=== PATIENT | male | born 1965 | race Caucasian/White ===

== ENCOUNTER 2022-05-20 14:42 | Emergency (ER) | payer OTHER ==
[~2022-05-20] VITALS: Ht 182.9 cm; Wt 147.9 kg
[~2022-05-20 14:42] MED LIST: APIX5TAB PO; CARV6.252 PO; FLONAS NS; LISI5TAB24 PO
[2022-05-20 14:58] VITALS: BP 109/47
--- NOTE | 2022-05-20 15:15 | NUR ---
PT AMB WITH STEADY GAIT TO BED 5
--- NOTE | 2022-05-20 15:49 | NUR ---
56YO MALE PT C/O EDEMA X2 DAYS. PT STATES CONSTANT MILD SWELLING BUT " IS WORSE TODAY" . PT PRESENTS WITH BILATERAL +1 PITTING EDEMA BELOW KNEES. PT C/O PAIN WHEN BEARING WEIGHT FOR LONG PERIODS OF TIME, DENIES AT THIS TIME. CAP REFILL <3 BILATERALLY THROUGHOUT LEGS. PT HAS HX OF AFIB AND STATES BEIING COMPLIANT W/ MEDS . DENIES N/V/D OR CHEST PAIN. PT PT ON FRENCH POLISHER, BED AT LOWEST POSITION, BED RAIL UPX2. HX: AFIB ALLERGIES: PENICILLIN
--- NOTE | 2022-05-20 15:53 | NUR ---
PT AMBULATES WITH STEADY GAIT TO RESTROOM.
--- NOTE | 2022-05-20 16:00 | NUR ---
XRAY AT BEDSIDE
[2022-05-20 16:32] LABS: BASOPHILS % (AUTO) 0.7 % (0.0-2.0); EOSINOPHILS # (AUTO) 0.2 K/uL (0-0.4); EOSINOPHILS % (AUTO) 4.2 % (0.0-4.0); HEMATOCRIT 44.8 % (36-52); HEMOGLOBIN 14.7 g/dL (12.0-18.0); LYMPHOCYTES # (AUTO) 1.4 K/uL (2.0-11.5); LYMPHOCYTES % (AUTO) 28.3 % (20.5-51.1); MEAN CORPUSCULAR HEMOGLOBIN 31 pg (27-31); MEAN CORPUSCULAR HGB CONC 33 g/dL (33-37); MEAN CORPUSCULAR VOLUME 94.2 fL (80-94); MONOCYTES # (AUTO) 0.7 K/uL (0.8-1.0); MONOCYTES % (AUTO) 14.3 % (1.7-9.3); NEUTROPHILS # (AUTO) 2.6 K/uL (1.8-7.7); NEUTROPHILS % (AUTO) 52.5 % (42.2-75.2); PLATELET COUNT (AUTO) 198 K/uL (140-450); RED BLOOD CELL COUNT(AUTO) 4.76 MIL/uL (4.20-6.10); RED CELL DISTRIBUTION WIDTH 13.8 % (11.6-13.7)
[2022-05-20 16:50] LABS: ALBUMIN 3.4 g/dL (3.4-5.0); ANION GAP 8.4 (8-16); CREATININE 1.5 mg/dL (0.6-1.3); POTASSIUM 4.4 mmol/L (3.5-5.1); TOTAL BILIRUBIN 0.4 mg/dL (0.0-1.0)
[2022-05-20] MEDS ORDERED: FURO-572 PO (17:51)
[2022-05-20 18:08] VITALS: BP 118/81
--- NOTE | 2022-05-20 18:08 | NUR ---
Patient discharged with v/s stable. Written and verbal after care instructions FOR EDEMA given and explained. Patient alert, oriented and verbalized understanding of instructions. Ambulatory with steady gait. All questions addressed prior to discharge. ID band removed. Patient advised to follow up with PMD. Rx of LASIX given. Opportunity to ask questions provided and answered.
== END 2022-05-20 18:08 | disposition home or self-care (01) ==
LOC: MED 14:42
DX: R60.9 Edema, unspecified (principal); N28.9 Disorder of kidney and ureter, unspecified; I48.91 Unspecified atrial fibrillation; I50.9 Heart failure, unspecified
CPT/HCPCS: 36415; 71045; 80053; 83880; 84484; 85025; 93005; 99285; Q0092

== ENCOUNTER 2022-05-24 23:30 | Emergency (ER) | payer OTHER ==
[~2022-05-24] VITALS: Ht 182.9 cm; Wt 147.0 kg
[~2022-05-24 23:30] MED LIST changes: +FURO-572 PO
[2022-05-24 23:40] VITALS: BP 116/71
--- NOTE | 2022-05-25 00:44 | NUR ---
Dr. Vincent examining patient.
[2022-05-25] MEDS ORDERED: DAPA10TA PO (00:47)
[2022-05-25] MEDS ORDERED: SACU1TAB9 PO (00:47)
[2022-05-25 00:56] VITALS: BP 116/71
--- NOTE | 2022-05-25 00:56 | NUR ---
Patient discharged with v/s stable. Written and verbal after care instructions given and explained by Dr. Vincent. Patient verbalized understanding. Ambulatory with steady gait. All questions addressed prior to discharge. Advised to follow up with PMD.
== END 2022-05-25 00:56 | disposition home or self-care (01) ==
LOC: MED 23:30
DX: R07.89 Other chest pain (principal); I48.91 Unspecified atrial fibrillation; I10 Essential (primary) hypertension; Z90.49 Acquired absence of other specified parts of digestive tract
CPT/HCPCS: 93005; 99283

== ENCOUNTER 2022-07-01 23:20 | Emergency (ER) | payer OTHER ==
[~2022-07-01] VITALS: Ht 182.9 cm; Wt 144.2 kg
[~2022-07-01 23:20] MED LIST changes: +DAPA10TA PO; +SACU1TAB9 PO
[2022-07-01 23:26] VITALS: BP_SYST 138; BP_SYST 95; BP_DIAS 47; BP_DIAS 79
--- NOTE | 2022-07-01 23:38 | NUR ---
Patient ambulated to bed 1.
--- NOTE | 2022-07-01 23:45 | NUR ---
ER physician at bedside assessing patient.
[2022-07-02 01:51] LABS: BASOPHILS # (AUTO) 0.1 K/uL (0.00-0.22); BASOPHILS % (AUTO) 1.3 % (0.0-2.0); EOSINOPHILS # (AUTO) 0.4 K/uL (0-0.4); EOSINOPHILS % (AUTO) 6.2 % (0.0-4.0); HEMATOCRIT 46.9 % (36-52); HEMOGLOBIN 15.5 g/dL (12.0-18.0); LYMPHOCYTES # (AUTO) 2.1 K/uL (2.0-11.5); LYMPHOCYTES % (AUTO) 35.4 % (20.5-51.1); MEAN CORPUSCULAR HEMOGLOBIN 32 pg (27-31); MEAN CORPUSCULAR HGB CONC 33 g/dL (33-37); MEAN CORPUSCULAR VOLUME 95.5 fL (80-94); MONOCYTES # (AUTO) 0.8 K/uL (0.8-1.0); MONOCYTES % (AUTO) 14.2 % (1.7-9.3); NEUTROPHILS # (AUTO) 2.5 K/uL (1.8-7.7); NEUTROPHILS % (AUTO) 42.9 % (42.2-75.2); PLATELET COUNT (AUTO) 185 K/uL (140-450); RED BLOOD CELL COUNT(AUTO) 4.91 MIL/uL (4.20-6.10); RED CELL DISTRIBUTION WIDTH 15.3 % (11.6-13.7); WHITE BLOOD COUNT (AUTO) 5.9 K/uL (4.8-10.8)
--- NOTE | 2022-07-02 02:00 | NUR ---
Patient resting comfortably in bed, chest rise and fall symmetrical, no c/o of pain or s/s of discomfort.
[2022-07-02 02:05] LABS: ALBUMIN 3.2 g/dL (3.4-5.0); ANION GAP 8.2 (8-16); CARBON DIOXIDE 34.7 mmol/L (21-32); CREATININE 1.7 mg/dL (0.6-1.3); POTASSIUM 3.9 mmol/L (3.5-5.1); TOTAL BILIRUBIN 0.7 mg/dL (0.0-1.0)
--- NOTE | 2022-07-02 03:30 | NUR ---
Patient resting comfortably in bed, chest rise and fall symmetrical, no c/o of pain or s/s of discomfort.
--- NOTE | 2022-07-02 04:00 | NUR ---
Patient resting comfortably in bed, chest rise and fall symmetrical, no c/o of pain or s/s of discomfort.
[2022-07-02 04:15] VITALS: BP 93/75
--- NOTE | 2022-07-02 04:16 | NUR ---
Patient discharged with v/s stable. Written and verbal after care instructions given and explained. Patient verbalized understanding. Ambulatory with steady gait. All questions addressed prior to discharge. Advised to follow up with PMD.
== END 2022-07-02 04:16 | disposition home or self-care (01) ==
LOC: MED 23:20
DX: R06.00 Dyspnea, unspecified (principal); R06.2 Wheezing; Z88.0 Allergy status to penicillin; Z79.899 Other long term (current) drug therapy
CPT/HCPCS: 36415; 71045; 80053; 83880; 84484; 85025; 93005; 99285; Q0092